=== PATIENT | male | born 1980 | race Caucasian/White ===

== ENCOUNTER 2018-03-09 19:38 | Emergency (ER) | payer OTHER ==
[2018-03-09] MEDS ORDERED: SODIUM CHLORIDE 0.9% 1,000 ML IV ONE (20:06)
--- NOTE | 2018-03-09 20:24 | ED Physician Documentation ---
History of Present Illness - Stated complaint Stated Complaint: HIGH BLOOD SUGAR - Chief complaint Chief Complaint: Ext Problem - History obtained from History obtained from: Patient - History of Present Illness Timing: How many days ago (4) - Additonal information Additional information: Patient is a 37 year old male who recently moved to [facility] from [place] who is presenting to the emergency department for elevated blood glucose and muscle cramps. patient states that we was able to control his diabetes and only had to take occasional insulin. Patient was told to stop his metformin. patient states that since moving here he has been unable to control his blood glucose. He reports for the last few days he has Review of Systems Constitutional: denies: Fever, Chills Eyes: denies: Decreased vision Ears: reports: Reviewed and negative Nose: reports: Reviewed and negative Throat: reports: Reviewed and negative Cardiac: denies: Chest pain / pressure, Palpitations GI: denies: Abdominal Pain, Nausea, Vomiting Neurologic: denies: Generalized weakness Endocrine: reports: Polydypsia, Polyuria Immunocompromised: denies: Immunocompromised PD PAST MEDICAL HISTORY - Past Medical History Past Medical History: Yes Cardiovascular: None Respiratory: None Neuro: None Endocrine/Autoimmune: Type 2 diabetes GI: None : None HEENT: None Psych: None Musculoskeletal: None Derm: None - Past Surgical History Past Surgical History: No - Present Medications Home Medications: Ambulatory Orders Medication Instructions Recorded Confirmed Insulin Aspart [NovoLOG] units SUBQ PRN 03/09/18 Insulin Degludec [Tresiba 10 unit SUBQ DAILY #1 each 03/09/18 Flextouch U-100] metFORMIN [Glucophage] 500 mg PO BIDWM #30 tablet 03/09/18 - Allergies Allergies/Adverse Reactions: Allergies Allergy/AdvReac Type Severity Reaction Status Date / Time No Known Drug Allergies Allergy Verified 03/09/18 19:48 - Social History Does the pt smoke?: No Smoking Status: Never smoker Does the pt drink ETOH?: Yes Does the pt have substance abuse?: No - Immunizations Immunizations are current?: Yes - POLST Patient has POLST: No PD ED PE NORMAL - General General: Alert and oriented X 3, No acute distress - HEENT HEENT: Atraumatic - Neck Neck: Supple, no meningeal sign - Cardiac Cardiac: RRR - Respiratory Respiratory: No respiratory distress - Abdomen Abdomen: Non tender, Non distended - Derm Derm: Normal color, Warm and dry, No rash - Extremities Extremities: No deformity - Neuro Neuro: Alert and oriented X 3, No motor deficit, Normal speech Eye Opening: Spontaneous Motor: Obeys Commands Verbal: Oriented GCS Score: 15 PD ED PE EXPANDED - HEENT HEENT: Dry mucous membranes Results - Vitals Vitals: Vital Signs - 24 hr 03/09/18 03/09/18 19:44 21:37 Temperature 36.6 C Heart Rate 94 84 Respiratory 17 18 Rate Blood Pressure 142/88 H 120/81 H O2 Saturation 96 96 Oxygen O2 Source Room air - Labs Labs: Laboratory Tests 03/09/18 03/09/18 03/09/18 19:51 20:15 20:15 WBC 8.0 RBC 5.04 Hgb 14.7 Hct 43.1 MCV 85.5 MCH 29.2 MCHC 34.2 RDW 13.4 Plt Count 201 MPV 8.2 Neut # 4.2 Lymph # 3.0 [place] # 0.6 Eos # 0.1 Baso # 0.0 Absolute Nucleated RBC 0.00 Nucleated RBC % 0.0 Sodium 138 Potassium 3.9 Chloride 104 Carbon Dioxide 25 Anion Gap 9.0 BUN 18 Creatinine 1.0 Estimated GFR (MDRD) 84 L Glucose 260 H POC Whole Bld Glucose 266 H Glycated Hemoglobin Estim Average Glucose Calcium 9.1 Phosphorus 3.6 Magnesium 2.0 Total Bilirubin 0.4 AST 29 ALT 50 Alkaline Phosphatase 58 Total Protein 7.0 Albumin 4.1 Globulin 2.9 Albumin/Globulin Ratio 1.4 Lipase 38 03/09/18 20:15 WBC RBC Hgb Hct MCV MCH MCHC RDW Plt Count MPV Neut # Lymph # [place] # Eos # Baso # Absolute Nucleated RBC Nucleated RBC % Sodium Potassium Chloride Carbon Dioxide Anion Gap BUN Creatinine Estimated GFR (MDRD) Glucose POC Whole Bld Glucose Glycated Hemoglobin 8.0 H Estim Average Glucose 183 H Calcium Phosphorus Magnesium Total Bilirubin AST ALT Alkaline Phosphatase Total Protein Albumin Globulin Albumin/Globulin Ratio Lipase PD MEDICAL DECISION MAKING - ED course Complexity details: reviewed old records, reviewed results, re-evaluated patient , considered differential, d/w patient, d/w family ED course: patient was seen and examined at bedside. patient was well appearing and in no acute distress. IV access was gained and labs were drawn. patient was treated with a fluid bolus. Patient's labs showed mildly elevated blood glucose but no other major abnormalities. Patient was started on metformin as he did not have a pcp at this point. patient required no furhter work up and was stable for discharge with outpatient follow up. Departure - Departure Disposition: 01 Home, Self Care Clinical Impression: Hyperglycemia Condition: Good Instructions: Hyperglycemia Follow-Up: primary,care provider [Other] - Within 1 week Prescriptions: Insulin Degludec [Tresiba Flextouch U-100] 10 unit SUBQ DAILY #1 each metFORMIN [Glucophage] 500 mg PO BIDWM #30 tablet Comments: Your diagnostics today aside from your blood glucose were within normal limits. You hemoglobin A1C was 8 so you will be restarted on metformin 500mg bid. It is important that you get established with a primary care provider as soon as possible to help manage your care. As you know diet and exercise is the best way to help control your blood sugars. You may return to the emergency department at any time for new, worsening or uncontrollable symptoms. Discharge Date/Time: 03/09/18 21:44
[2018-03-09 20:31] LABS: BASOPHILS % (AUTO) 0.6 %; EOSINOPHILS # (AUTO) 0.1 10^3/uL (0.0-0.7); EOSINOPHILS % (AUTO) 1.7 %; HGB - HEMOGLOBIN 14.7 g/dL (14.0-18.0); LYMPHOCYTES % (AUTO) 37.8 %; MEAN CORPUSCULAR HEMOGLOBIN 29.2 pg (27.0-31.0); MEAN CORPUSCULAR HGB CONC 34.2 g/dL (32.0-36.0); MEAN CORPUSCULAR VOLUME 85.5 fL (80.0-94.0); MEAN PLATELET VOLUME 8.2 fL (7.4-11.4); MONOCYTES # (AUTO) 0.6 10^3/uL (0.0-1.0); MONOCYTES % (AUTO) 8.1 %; NEUTROPHILS # (AUTO) 4.2 10^3/uL (1.5-6.6); NEUTROPHILS % (AUTO) 51.8 %; PLT - PLATELET COUNT 201 10^3/uL (130-450); RED BLOOD COUNT 5.04 10^6/uL (4.70-6.10); RED CELL DISTRIBUTION WIDTH 13.4 % (12.0-15.0)
[2018-03-09 20:41] LABS: ALBUMIN 4.1 g/dL (3.2-5.5); ALBUMIN/GLOBULIN RATIO 1.4 (1.0-2.2); BILIRUBIN,TOTAL 0.4 mg/dL (0.2-1.0); CALCIUM 9.1 mg/dL (8.5-10.3); PHOSPHORUS 3.6 mg/dL (2.5-4.6)
[2018-03-09 21:00] LABS: HB2 TOTAL 16.7 g/dL; HEMOGLOBIN A1C 1.06 g/dL
[2018-03-09] MEDS ORDERED: metFORMIN 500 MG TABLET PO STA (21:36)
[2018-03-09 21:37] VITALS: BP 120/81
== END 2018-03-09 21:44 | disposition home or self-care (01) ==
LOC: ED 19:38
DX: E11.65 Type 2 diabetes mellitus with hyperglycemia (principal); Z79.4 Long term (current) use of insulin
CPT/HCPCS: 36415; 80053; 83036; 83690; 83735; 84100; 85025; 96360; 99283; A9270

== ENCOUNTER 2018-11-27 08:09 | Outpatient (CLI) | payer OTHER ==
--- NOTE | 2018-11-27 10:13 | MRI Report ---
Reason: LOW BACK PAIN Procedure Date: 11/27/2018 Accession Number: [id number] / [id number] Procedure: MRI - Lumbar Spine W/O CPT Code: FULL RESULT: EXAM: MRI LUMBAR SPINE WITHOUT CONTRAST EXAM DATE: 11/27/2018 09:37 AM. CLINICAL HISTORY: 38-year-old male. LOW BACK PAIN. COMPARISON: None. TECHNIQUE: Multiplanar, multisequence T1-weighted and fluid-sensitive sequences of the lumbar spine from T12 to S1 without contrast. Other: None. FINDINGS: Spinal Canal: The conus terminates at L1-L2. The conus medullaris and cauda equina are unremarkable. Alignment: Straightening of the normal lumbar lordosis. No significant anterolisthesis or retrolisthesis. Bone Marrow: Five [id number] lumbar vertebral bodies are assumed. No gross fractures or bone lesions. No bone marrow replacement. Disk Levels/Facets: T12-L1: Unremarkable. L1-L2: Unremarkable. L2-L3: Unremarkable. L3-L4: Unremarkable. L4-L5: Mild diffuse disk bulge. Mild bilateral facet arthropathy. No significant central canal or foraminal narrowing. L5-S1: Moderate disk height loss and desiccation. Large diffuse disk bulge with superimposed right subarticular disk extrusion measuring 10 mm. Mild to moderate bilateral facet arthropathy. Mild central canal narrowing and severe right lateral recess narrowing with mass-effect on traversing right S1 nerve. Moderate right foraminal narrowing. Mild to moderate left foraminal narrowing. Musculature: Normal. No edema or fatty atrophy. Other: The partially visualized retroperitoneum is unremarkable. IMPRESSION: 1. Regarding the patient's symptoms, the most significant level is likely the L5-S1 level which demonstrates a large diffuse disk bulge with superimposed right subarticular disk extrusion measuring 10 mm. Mild central canal narrowing and severe right lateral recess narrowing with mass-effect on traversing right S1 nerve. Moderate right foraminal narrowing. Mild to moderate left foraminal narrowing. 2. The remaining lumbar levels demonstrate no significant central canal or foraminal narrowing. No acute fracture or malalignment. No bone marrow edema. No cord signal abnormality. Comment: The following findings are so common in adults without low back pain that while we report their presence, they must be interpreted with caution and in the context of the clinical situation. (Reference Michelk et al, Spine 2001) Prevalence of findings in patients without low back pain: Disk degeneration (any evidence): 92% Disk desiccation/T2 signal loss: 83% Disk height loss: 56% Disk bulge: 64% Disk protrusion: 32% Annular tear/high intensity zone: 38% RADIA
== END 2018-11-27 08:10 | disposition home or self-care (01) ==
LOC: DI 08:09
PROVIDERS: ATTEND Family Medicine
DX: M51.27 Other intervertebral disc displacement, lumbosacral region (principal)
CPT/HCPCS: 72148

== ENCOUNTER 2019-09-30 20:22 | Emergency (ER) | payer OTHER ==
[2019-09-30 21:18] LABS: GLUCOSE, URINE (UA) >=1000 mg/dL (NEGATIVE); KETONES,URINE (UA) >=80 mg/dL (NEGATIVE); LEUKOCYTE ESTERASE, URINE NEGATIVE (NEGATIVE); NITRITE,URINE NEGATIVE (NEGATIVE); OCCULT BLOOD,URINE NEGATIVE (NEGATIVE); PH,URINE 5.5 PH (5.0-7.5); PROTEIN,URINE 30 mg/dL (NEGATIVE); UROBILINOGEN,URINE 0.2 (NORMAL) E.U./dL (NORMAL)
[2019-09-30 21:26] LABS: BASOPHILS # (AUTO) 0.1 10^3/uL (0.0-0.1); BASOPHILS % (AUTO) 0.6 %; EOSINOPHILS # (AUTO) 0.1 10^3/uL (0.0-0.7); EOSINOPHILS % (AUTO) 0.9 %; HGB - HEMOGLOBIN 15.2 g/dL (14.0-18.0); LYMPHOCYTES # (AUTO) 1.7 10^3/uL (1.5-3.5); MEAN CORPUSCULAR HEMOGLOBIN 30.6 pg (27.0-31.0); MEAN CORPUSCULAR HGB CONC 36.4 g/dL (32.0-36.0); MEAN CORPUSCULAR VOLUME 84.1 fL (80.0-94.0); MEAN PLATELET VOLUME 10.8 fL (7.4-11.4); MONOCYTES # (AUTO) 0.6 10^3/uL (0.0-1.0); MONOCYTES % (AUTO) 6.4 %; NEUTROPHILS # (AUTO) 7.4 10^3/uL (1.5-6.6); NEUTROPHILS % (AUTO) 74.7 %; PLT - PLATELET COUNT 212 10^3/uL (130-450); RED BLOOD COUNT 4.97 10^6/uL (4.70-6.10); RED CELL DISTRIBUTION WIDTH 12.8 % (12.0-15.0); WHITE BLOOD COUNT 9.9 x10^3/uL (4.8-10.8)
--- NOTE | 2019-09-30 21:31 | ED Physician Documentation ---
PD HPI ABD PAIN - Stated complaint Stated Complaint: ABD PAIN - Chief complaint Chief Complaint: Abd Pain - History obtained from History obtained from: Patient - History of Present Illness Timing - onset: Today Timing - duration: Hours (several hours ago) Pain level max: 7 Pain level now: 7 Severity Comments: Moderate Quality: Aching, Pain Location: RUQ Radiation: Other (none) Improved by: Other (nothing) Worsened by: Other (nothing) Associated symptoms: Nausea. No: Fever, Vomiting, Hematemesis, Diarrhea, Constipation, Melena, Hematochezia, Dysuria, Hematuria, Chest pain, Dizzy, Near syncope / syncope, Loss of appetite Similar symptoms before: Has not had sx before Recently seen: Not recently seen - Treatment prior to arrival Treatment prior to arrival: Pepto bismol once without relief - Additional information Additional information: Pt's pain started after eating a buffalo chicken lizette and a smoothie. Review of Systems Ten Systems: 10 systems reviewed and negative Constitutional: denies: Fever Ears: reports: Reviewed and negative Nose: reports: Reviewed and negative Cardiac: reports: Reviewed and negative Respiratory: reports: Reviewed and negative GI: reports: Abdominal Pain, Nausea. denies: Abdominal Swelling, Vomiting, Constipation, Diarrhea, Hematemesis, Bloody / black stool : reports: Reviewed and negative Skin: reports: Reviewed and negative Musculoskeletal: reports: Reviewed and negative Neurologic: reports: Reviewed and negative Endocrine: reports: Reviewed and negative Immunocompromised: reports: Reviewed and negative PD PAST MEDICAL HISTORY - Past Medical History Past Medical History: Yes Cardiovascular: None Respiratory: None Endocrine/Autoimmune: Type 2 diabetes GI: None : None HEENT: None Psych: None Musculoskeletal: None Derm: None - Past Surgical History Past Surgical History: No - Present Medications Home Medications: Ambulatory Orders Medication Instructions Recorded Confirmed Insulin Aspart [NovoLOG] units SUBQ PRN 03/09/18 Insulin Degludec [Tresiba 10 unit SUBQ DAILY #1 each 03/09/18 Flextouch U-100] metFORMIN [Glucophage] 500 mg PO BIDWM #30 tablet 03/09/18 Ondansetron Odt [Zofran] 4 mg TL Q6H PRN #10 tablet 10/01/19 Oxycodone HCl/Acetaminophen 1 - 2 each PO Q6H PRN #10 tablet 10/01/19 [Percocet 5-325 mg Tablet] - Allergies Allergies/Adverse Reactions: Allergies Allergy/AdvReac Type Severity Reaction Status Date / Time No Known Drug Allergies Allergy Verified 03/09/18 19:48 - Social History Does the pt smoke?: No Smoking Status: Never smoker Does the pt drink ETOH?: Yes Does the pt have substance abuse?: No - Immunizations Immunizations are current?: Yes - POLST Patient has POLST: No PD ED PE NORMAL - Vitals Vital signs reviewed: Yes - General General: Alert and oriented X 3, No acute distress, Well developed/nourished - HEENT HEENT: Atraumatic - Neck Neck: Supple, no meningeal sign - Cardiac Cardiac: RRR - Respiratory Respiratory: No respiratory distress - Abdomen Abdomen: Soft - Male Male : Deferred - Rectal Rectal: Deferred - Derm Derm: Normal color, Warm and dry, No rash - Extremities Extremities: No deformity - Neuro Neuro: Alert and oriented X 3 Eye Opening: Spontaneous Motor: Obeys Commands Verbal: Oriented GCS Score: 15 - Psych Psych: Normal mood, Normal affect Results - Vitals Vitals: Vital Signs - 24 hr 09/30/19 09/30/19 09/30/19 20:33 21:49 23:00 Temperature 36.5 C Heart Rate 111 H 96 99 Respiratory 18 14 18 Rate Blood Pressure 123/82 H 114/77 99/69 O2 Saturation 96 93 94 10/01/19 00:53 Temperature Heart Rate 99 Respiratory 18 Rate Blood Pressure 116/73 O2 Saturation 100 Oxygen O2 Source Room air - Labs Labs: Laboratory Tests 09/30/19 09/30/19 09/30/19 20:49 20:49 21:09 WBC 9.9 RBC 4.97 Hgb 15.2 Hct 41.8 L MCV 84.1 MCH 30.6 MCHC 36.4 H RDW 12.8 Plt Count 212 MPV 10.8 Neut # (Auto) 7.4 H Lymph # (Auto) 1.7 [place] # (Auto) 0.6 Eos # (Auto) 0.1 Baso # (Auto) 0.1 Absolute Nucleated RBC 0.00 Nucleated RBC % 0.0 Sodium 139 Potassium 3.8 Chloride 102 Carbon Dioxide 17 L Anion Gap 20.0 H BUN 18 Creatinine 0.7 Estimated GFR (MDRD) 126 Glucose 409 H Calcium 9.4 Total Bilirubin 1.0 AST 43 H ALT 55 Alkaline Phosphatase 66 Total Protein 6.9 Albumin 4.2 Globulin 2.7 Albumin/Globulin Ratio 1.6 Lipase 443 H Urine Color YELLOW Urine Clarity CLEAR Urine pH 5.5 Ur Specific [place] 1.020 Urine Protein 30 H Urine Glucose (UA) >=1000 H Urine Ketones >=80 H Urine Occult Blood NEGATIVE Urine Nitrite NEGATIVE Urine Bilirubin NEGATIVE Urine Urobilinogen 0.2 (NORMAL) Ur Leukocyte Esterase NEGATIVE Urine RBC 0-5 Urine WBC 0-3 Ur Squamous Epith Cells NONE SEEN Urine Bacteria None Seen Ur Microscopic Review INDICATED Urine Culture Comments NOT INDICATED PD MEDICAL DECISION MAKING - ED course Complexity details: reviewed results, re-evaluated patient, considered differential, d/w patient ED course: ddx- cholelithiasis, cholecystitis, gastritis, pancreatitis, PUD 38 y/o M with hx and exam as documented, upper abdominal pain, nausea and vomiting after eating a fatty meal today. Suspicious for pancreatitis. Pt however well appearing and without prior hx of pancreatitis. Also denies alcohol use. Lipase is significantly elevated. He is feeling better after analgesics and antiemetics. US shows no evidence of gallstones. Lab called to tell me that his blood was very lipemic. Suspect this is due to hypertriglyceridemia and advised pt to f/u with his PCP to obtain labs for cholesterol and TGs and to f/u for recheck of his pancreatitis. Discussed importance of a low fat diet for the next several days and return precautions if worsening symptoms or fever. Pt is tolerating pO and is stable for discharge with outpt f/u and continued supportive care. Departure - Departure Disposition: 01 Home, Self Care Clinical Impression: Pancreatitis Qualifiers: Chronicity: acute Pancreatitis type: other Acute pancreatitis complication: no infection or necrosis Qualified Code(s): K85.80 - Other acute pancreatitis without necrosis or infection Condition: Stable Record reviewed to determine appropriate education?: Yes Instructions: ED Pancreatitis Follow-Up: SULY COOK [Primary Care Provider] - Within 1 week Prescriptions: Ondansetron Odt [Zofran] 4 mg TL Q6H PRN #10 tablet PRN Reason: Nausea / Vomiting Oxycodone HCl/Acetaminophen [Percocet 5-325 mg Tablet] 1 - 2 each PO Q6H PRN #10 tablet PRN Reason: pain Comments: You have pancreatitis likely due to elevated triglyceride levels and a high fat diet. You have no gallstones on ultrasound. You can take pain and nausea medicine as needed. Take ibuprofen first for pain and percocet only if pain is severe. Eat a low fat diet. Return to the ED if worsening symptoms. Discharge Date/Time: 10/01/19 01:06
[2019-09-30] MEDS ORDERED: KETOROLAC 30 MG/ML VIAL IVP STA (21:32)
[2019-09-30] MEDS ORDERED: ONDANSETRON 4 MG/2 ML VIAL IVP STA (21:32)
[2019-09-30 21:36] LABS: BILIRUBIN,URINE NEGATIVE (NEGATIVE); CLARITY,URINE CLEAR (CLEAR); ICTOTEST,URINE NEGATIVE
[2019-09-30 21:38] LABS: BACTERIA,URINE None Seen /HPF (None Seen); RBC,URINE 0-5 /HPF (0-5); SQUAMOUS EPITHELIAL CELL,UR NONE SEEN (<= Few)
[2019-09-30] MEDS ORDERED: SODIUM CHLORIDE 0.9% 1,000 ML IV ONE (21:47)
[2019-09-30 21:58] LABS: CALCIUM 9.4 mg/dL (8.5-10.3); CREATININE 0.7 mg/dL (0.6-1.2); TOTAL PROTEIN 6.9 g/dL (6.7-8.2)
[2019-09-30 21:59] LABS: ALBUMIN 4.2 g/dL (3.2-5.5); ALBUMIN/GLOBULIN RATIO 1.6 (1.0-2.2)
--- NOTE | 2019-10-01 00:31 | Ultrasound Report ---
Reason: RUQ Procedure Date: 09/30/2019 Accession Number: [id number] / [id number] Procedure: US - Abdomen Limited CPT Code: Final Report FULL RESULT: EXAM: ABDOMEN ULTRASOUND LIMITED, RUQ EXAM DATE: 09/30/2019 11:47 PM. CLINICAL HISTORY: Right upper quadrant abdominal pain COMPARISON: None. TECHNIQUE: Real-time scanning was performed with static images obtained. FINDINGS: Liver: The liver it is coarse in echotexture and increased in echogenicity. The liver is enlarged measuring 21 cm in length. Main portal vein flow: Hepatopetal. Gallbladder: Normal. No stones, wall thickening, or sonographic Mckinley's sign. Biliary System: The common bile duct is not well seen. There is no intrahepatic biliary dilatation. The proximal pancreatic duct is prominent in size measuring 3 mm. Other: The right kidney measures 12.4 cm in length and is without evidence of mass or calculus. No hydronephrosis is seen. IMPRESSION: Coarse and echogenic liver consistent with steatohepatitis. Hepatomegaly. Normal gallbladder. Prominent pancreatic duct. RADIA
[2019-10-01 00:53] VITALS: BP 116/73
== END 2019-10-01 01:06 | disposition home or self-care (01) ==
LOC: ED 20:22
DX: K85.80 Other acute pancreatitis without necrosis or infection (principal); E78.5 Hyperlipidemia, unspecified; E11.9 Type 2 diabetes mellitus without complications; Z79.4 Long term (current) use of insulin
CPT/HCPCS: 36415; 76705; 80053; 81001; 81003; 83690; 85025; 87086; 96361; 96374; 99284

== ENCOUNTER 2019-12-13 11:02 | Emergency (ER) | payer OTHER ==
[2019-12-13 11:11] VITALS: BP 133/91
--- NOTE | 2019-12-13 12:38 | ED Physician Documentation ---
PD HPI OPHTHO - Stated complaint Stated Complaint: RIGHT EYE PAIN - Chief complaint Chief Complaint: Heent - History obtained from History obtained from: Patient - History of Present Illness Timing - onset: Yesterday (39-year-old [place] he yesterday felt like something got in his right eye and had increasing pain overnight. Vision is not affected but he is photophobic. He does not wear contacts.) Review of Systems Constitutional: reports: Reviewed and negative Ears: reports: Reviewed and negative Nose: reports: Reviewed and negative PD PAST MEDICAL HISTORY - Past Medical History Cardiovascular: None Respiratory: None Endocrine/Autoimmune: Type 2 diabetes GI: None : None HEENT: None Psych: None Musculoskeletal: None Derm: None - Past Surgical History Past Surgical History: No - Present Medications Home Medications: Ambulatory Orders Medication Instructions Recorded Confirmed Insulin Aspart [NovoLOG] units SUBQ PRN 03/09/18 Insulin Degludec [Tresiba 10 unit SUBQ DAILY #1 each 03/09/18 Flextouch U-100] metFORMIN [Glucophage] 500 mg PO BIDWM #30 tablet 03/09/18 Ondansetron Odt [Zofran] 4 mg TL Q6H PRN #10 tablet 10/01/19 Oxycodone HCl/Acetaminophen 1 - 2 each PO Q6H PRN #10 tablet 10/01/19 [Percocet 5-325 mg Tablet] Erythromycin Base [Erythromycin 1 appful OP 5XD 7 Days #1 oint...g. 12/13/19 Ophthalmic Ointment] Ketorolac 0.45% Ophth Drops 1 each OPTH Q6H PRN #1 bottle 12/13/19 [Acuvail] - Allergies Allergies/Adverse Reactions: Allergies Allergy/AdvReac Type Severity Reaction Status Date / Time No Known Drug Allergies Allergy Verified 12/13/19 11:11 - Social History Does the pt smoke?: No Smoking Status: Never smoker Does the pt drink ETOH?: Yes Does the pt have substance abuse?: No - Immunizations Immunizations are current?: Yes - POLST Patient has POLST: No PD ED PE NORMAL - Vitals Vital signs reviewed: Yes - General General: Alert and oriented X 3, No acute distress - HEENT HEENT: PERRL, EOMI, Other (There is conjunctival inflammation on the right greater than left eyes, on fluorescein examination there is a large lateral right sided corneal abrasion with negative Ismael sign.) - Neck Neck: Supple, no meningeal sign, No bony TTP - Neuro Neuro: Alert and oriented X 3, Normal speech - Psych Psych: Normal mood, Normal affect Results - Vitals Vitals: Vital Signs - 24 hr 12/13/19 11:07 Temperature 36.1 C L Heart Rate 85 Respiratory 16 Rate Blood Pressure 133/91 H O2 Saturation 98 Oxygen O2 Source Room air PD MEDICAL DECISION MAKING - ED course ED course: 39-year-old gentleman with a corneal abrasion, the fornices were explored and there was no foreign body, out of an abundance of caution the eyes were irrigated. He was pain-free after proparacaine. Departure - Departure Disposition: Home, Self Care Clinical Impression: Corneal abrasion, right Qualifiers: Encounter type: initial encounter Qualified Code(s): S05.01XA - Injury of conjunctiva and corneal abrasion without foreign body, right eye, initial encounter Condition: Good Record reviewed to determine appropriate education?: Yes Instructions: ED Eye Injury Corneal Abrasion Follow-Up: Aron Salinas MD [Provider Admit Priv/Credential] - Within 3 Days Prescriptions: Erythromycin Base [Erythromycin Ophthalmic Ointment] 1 appful OP 5XD 7 Days #1 oint...g. Ketorolac 0.45% Ophth Drops [Acuvail] 1 each OPTH Q6H PRN #1 bottle PRN Reason: eye pain Comments: Follow-up with the eye doctor on Monday if not better, return for new or worsening symptoms.
== END 2019-12-13 12:45 | disposition home or self-care (01) ==
LOC: ED 11:02
DX: S05.01XA Injury of conjunctiva and corneal abrasion without foreign body, right eye, initial encounter (principal); X58.XXXA Exposure to other specified factors, initial encounter; Y93.89 Activity, other specified; Y92.139 Unspecified place military base as the place of occurrence of the external cause; Y99.8 Other external cause status; E11.9 Type 2 diabetes mellitus without complications; Z79.4 Long term (current) use of insulin
CPT/HCPCS: 99282; 99284